=== PATIENT | female | born 1940 | race Caucasian/White ===

== ENCOUNTER 2020-01-04 13:04 | Inpatient (IN) ==
[2020-01-04] MEDS ORDERED: 0.9 % Sodium Chloride 1,000 ML IVC STA ×2 (13:22→15:13)
[2020-01-04 13:42] LABS: INR 1.6; Prothrombin Time 18.5 Seconds (9.4-12.1)
[2020-01-04 13:44] LABS: Activated Partial Thrombo Time 24.6 Seconds (26.0-36.0); Hematocrit 22.8 % (35.3-44.9); Hemoglobin 7.5 g/dL (11.5-15.4); Immature Platelets 1.7 % (1.1-6.1); Mean Corpuscular HGB Conc 32.9 g/dL (31.6-35.5); Mean Corpuscular Hemoglobin 30.7 pg (28.0-33.3); Mean Corpuscular Volume 93.4 fL (83.0-100.0); Mean Platelet Volume 9.3 fL (9.4-12.4); Red Blood Count 2.44 M/mcL (3.82-4.97); Red Cell Distribution Width 15.7 % (11.5-14.5)
[2020-01-04 14:01] LABS: Bilirubin,Urine Small (Negative); Blood,Urine Negative (Negative); Clarity,Urine Clear (Clear); Color,Urine Yellow (Yellow); Glucose,Urine (UA) Normal (Normal); Ketones,Urine Negative (Negative); Leukocyte Esterase,Urine Negative (Negative); Nitrite,Urine Negative (Negative); Protein,Urine Negative (Neg-Trace); Specific Gravity,Urine 1.015 (1.010-1.025); Urobilinogen,Urine Normal (Normal)
[2020-01-04 14:11] LABS: Alanine Aminotransferase 53 Units/L (7-52); Albumin 2.8 g/dL (3.5-5.7); Albumin/Globulin Ratio 1.3 (1.1-2.2); Alkaline Phosphatase 85 Units/L (34-104); Aspartate Amino Transferase 22 Units/L (13-39); BUN/Creatinine Ratio 31 (6-26); Bilirubin,Direct 0.2 mg/dL (0.0-0.2); Bilirubin,Indirect 0.6 mg/dL (0.0-1.0); Bilirubin,Total 0.8 mg/dL (0.3-1.0); Blood Urea Nitrogen 33 mg/dL (8-23); Calcium 8.1 mg/dL (8.6-10.3); Carbon Dioxide 21 mEq/L (23-29); Chloride 104 mEq/L (98-107); Globulin 2.1 g/dL (2.4-3.5); Glucose 181 mg/dL (70-105); Magnesium 1.3 mg/dL (1.6-2.6); Osmolality,Calculated 290 (280-300); Phosphorous 2.8 mg/dL (2.7-4.5); Sodium 134 mEq/L (136-145); Total Protein 4.9 g/dL (6.4-8.9); Troponin I < 0.03 ng/mL (< 0.04); Uric Acid 3.4 mg/dL (2.3-7.6); eGFR For African Americans > 60 (> 60); eGFR For Non-African Americans 50 (> 60)
[2020-01-04] MEDS ORDERED: Potassium Chloride 40 MEQ, Lidocaine 1% 2 ML in 0.9 % Sodium Chloride 500 ML IVPB ONE (14:18)
[2020-01-04 14:19] LABS: Platelet Count 51 K/mcL (140-400)
[2020-01-04 14:21] LABS: Lymphocytes # 0.2 K/mcL (0.6-4.6); Neutrophils # 0.1 K/mcL (1.6-8.9)
[2020-01-04 14:27] LABS: White Blood Count 0.3 K/mcL (4.3-11.1)
[2020-01-04 14:38] LABS: Platelet Estimate Decreased (Normal)
[2020-01-04] MEDS ORDERED: Cefepime HCl 2,000 MG in 0.9 % Sodium Chloride Mini Bag 100 ML IVPB ONE (14:56)
[2020-01-04] MEDS ORDERED: Naloxone 0.4 MG/ML INJ IVP PRN (16:48)
[2020-01-04] MEDS ORDERED: Ondansetron 4 MG/2 ML VIAL IVP PRN (16:48)
[2020-01-04] MEDS ORDERED: Azithromycin 500 MG in 0.9 % Sodium Chloride 250 ML IVPB ONE (17:15)
[2020-01-04] MEDS: 0.9 % Sodium Chloride w KCl 20 MEQ/1,000 ML MLS IVC SCH (20:22)
[2020-01-04] MEDS: Apixaban 2.5 MG TABLET PO SCH (20:23)
[2020-01-05 02:52] LABS: Mean Corpuscular HGB Conc 32.2 g/dL (31.6-35.5); Mean Corpuscular Hemoglobin 30.8 pg (28.0-33.3)
[2020-01-05 02:55] LABS: Hematocrit 20.2 % (35.3-44.9); Hemoglobin 6.5 g/dL (11.5-15.4); Immature Platelets 1.8 % (1.1-6.1); Lymphocytes % 75.8 %; Mean Corpuscular Volume 95.7 fL (83.0-100.0); Monocytes % 9.1 %; Red Blood Count 2.11 M/mcL (3.82-4.97); Red Cell Distribution Width 15.9 % (11.5-14.5); Segmented Neutrophils % 12.1 %
[2020-01-05 03:02] LABS: Lymphocytes # 0.2 K/mcL (0.6-4.6); Platelet Count 41 K/mcL (140-400)
[2020-01-05 03:04] LABS: White Blood Count 0.3 K/mcL (4.3-11.1)
[2020-01-05 03:16] LABS: BUN/Creatinine Ratio 32 (6-26); Blood Urea Nitrogen 25 mg/dL (8-23); Calcium 7.2 mg/dL (8.6-10.3); Carbon Dioxide 19 mEq/L (23-29); Chloride 113 mEq/L (98-107); Glucose 83 mg/dL (70-105); Magnesium 1.9 mg/dL (1.6-2.6); Osmolality,Calculated 288 (280-300); Phosphorous 2.6 mg/dL (2.7-4.5); Potassium 4.3 mEq/L (3.5-5.1); Sodium 137 mEq/L (136-145); eGFR For African Americans > 60 (> 60); eGFR For Non-African Americans > 60 (> 60)
[2020-01-05 04:10] LABS: Platelet Estimate Decreased (Normal)
[2020-01-05] MEDS: 0.9 % Sodium Chloride w KCl 20 MEQ/1,000 ML MLS IVC SCH (06:00)
[2020-01-05] MEDS: Apixaban 2.5 MG TABLET PO SCH (08:29)
[2020-01-05] MEDS: allopurinoL 300 MG TABLET PO SCH (08:29)
[2020-01-05] MEDS ORDERED: 0.9 % Sodium Chloride 250 ML ONE (09:08)
[2020-01-05] MEDS: Cefepime HCl 2,000 MG in 0.9 % Sodium Chloride Mini Bag 100 ML IVPB SCH ×2 (12:00→21:23)
[2020-01-05] MEDS: DilTIAZem CD (24hr) 120 MG CAP.ER.24H PO SCH ×2 (12:00→21:24)
[2020-01-05] MEDS ORDERED: Cefepime HCl 2,000 MG in 0.9 % Sodium Chloride Mini Bag 100 ML IVPB SCH (16:00)
[2020-01-06 02:17] LABS: Hemoglobin 7.9 g/dL (11.5-15.4); Mean Corpuscular Volume 92.7 fL (83.0-100.0); Red Cell Distribution Width 15.9 % (11.5-14.5)
[2020-01-06 02:19] LABS: Immature Granulocytes % 3.3 % (0-4); Lymphocytes # 0.3 K/mcL (0.6-4.6); Lymphocytes % 86.7 %; Mean Corpuscular HGB Conc 32.9 g/dL (31.6-35.5); Mean Corpuscular Hemoglobin 30.5 pg (28.0-33.3); Mean Platelet Volume 10.7 fL (9.4-12.4); Red Blood Count 2.59 M/mcL (3.82-4.97)
[2020-01-06 02:27] LABS: Platelet Count 29 K/mcL (140-400); White Blood Count 0.3 K/mcL (4.3-11.1)
[2020-01-06 02:39] LABS: % Iron Saturation 39 % (15-50); BUN/Creatinine Ratio 24 (6-26); Blood Urea Nitrogen 18 mg/dL (8-23); Calcium 7.6 mg/dL (8.6-10.3); Carbon Dioxide 19 mEq/L (23-29); Chloride 109 mEq/L (98-107); Glucose 95 mg/dL (70-105); Iron 67 mcg/dL (50-170); Magnesium 1.6 mg/dL (1.6-2.6); Osmolality,Calculated 280 (280-300); Phosphorous 2.2 mg/dL (2.7-4.5); Platelet Estimate Marked Decrease (Normal); Potassium 3.7 mEq/L (3.5-5.1); Sodium 134 mEq/L (136-145); Transferrin 124 mg/dL (203-362); eGFR For African Americans > 60 (> 60); eGFR For Non-African Americans > 60 (> 60)
[2020-01-06 02:56] LABS: Ferritin 247 ng/mL (10-120)
[2020-01-06 03:02] LABS: Folate 10.5 ng/mL (3.0-16.0)
[2020-01-06] MEDS: allopurinoL 300 MG TABLET PO SCH (08:26)
[2020-01-06] MEDS: DilTIAZem CD (24hr) 120 MG CAP.ER.24H PO SCH ×2 (08:26→21:42)
[2020-01-06] MEDS: Cefepime HCl 2,000 MG in 0.9 % Sodium Chloride Mini Bag 100 ML IVPB SCH ×2 (08:26→21:42)
[2020-01-06 17:01] LABS: Hemoglobin 8.8 g/dL (11.5-15.4)
[2020-01-06 17:03] LABS: Hematocrit 26.4 % (35.3-44.9); Immature Platelets 2.1 % (1.1-6.1); Lymphocytes # 0.3 K/mcL (0.6-4.6); Lymphocytes % 87.1 %; Mean Corpuscular HGB Conc 33.3 g/dL (31.6-35.5); Mean Corpuscular Hemoglobin 30.6 pg (28.0-33.3); Mean Corpuscular Volume 91.7 fL (83.0-100.0); Mean Platelet Volume 10.4 fL (9.4-12.4); Monocytes % 12.9 %; Red Blood Count 2.88 M/mcL (3.82-4.97); Red Cell Distribution Width 15.2 % (11.5-14.5)
[2020-01-06 17:23] LABS: Platelet Count 26 K/mcL (140-400); White Blood Count 0.3 K/mcL (4.3-11.1)
[2020-01-06 17:24] LABS: Platelet Estimate Marked Decrease (Normal)
[2020-01-06] MEDS: Vancomycin 1,250 MG/262.5 ML IV.SOLN IVPB SCH (17:41)
[2020-01-07 02:09] LABS: Hemoglobin 8.4 g/dL (11.5-15.4); Red Cell Distribution Width 15.2 % (11.5-14.5)
[2020-01-07 02:11] LABS: Hematocrit 25.5 % (35.3-44.9); Lymphocytes # 0.2 K/mcL (0.6-4.6); Lymphocytes % 80.6 %; Mean Corpuscular HGB Conc 32.9 g/dL (31.6-35.5); Mean Corpuscular Hemoglobin 30.8 pg (28.0-33.3); Mean Corpuscular Volume 93.4 fL (83.0-100.0); Mean Platelet Volume 10.7 fL (9.4-12.4); Monocytes % 9.7 %; Red Blood Count 2.73 M/mcL (3.82-4.97); Segmented Neutrophils % 9.7 %
[2020-01-07 02:26] LABS: BUN/Creatinine Ratio 17 (6-26); Blood Urea Nitrogen 13 mg/dL (8-23); Calcium 7.8 mg/dL (8.6-10.3); Carbon Dioxide 20 mEq/L (23-29); Chloride 106 mEq/L (98-107); Glucose 98 mg/dL (70-105); Osmolality,Calculated 278 (280-300); Potassium 3.6 mEq/L (3.5-5.1); Sodium 134 mEq/L (136-145); eGFR For African Americans > 60 (> 60); eGFR For Non-African Americans > 60 (> 60)
[2020-01-07 02:27] LABS: Magnesium 1.5 mg/dL (1.6-2.6); Phosphorous 2.6 mg/dL (2.7-4.5)
[2020-01-07 02:28] LABS: Platelet Count 25 K/mcL (140-400); White Blood Count 0.3 K/mcL (4.3-11.1)
[2020-01-07 02:55] LABS: Platelet Estimate Marked Decrease (Normal)
[2020-01-07 08:19] LABS: Mean Corpuscular Volume 93.6 fL (83.0-100.0)
[2020-01-07 08:21] LABS: Hematocrit 26.5 % (35.3-44.9); Hemoglobin 8.7 g/dL (11.5-15.4); Immature Platelets 2.6 % (1.1-6.1); Lymphocytes # 0.2 K/mcL (0.6-4.6); Lymphocytes % 78.6 %; Mean Corpuscular HGB Conc 32.8 g/dL (31.6-35.5); Mean Corpuscular Hemoglobin 30.7 pg (28.0-33.3); Mean Platelet Volume 10.3 fL (9.4-12.4); Monocytes % 10.7 %; Red Blood Count 2.83 M/mcL (3.82-4.97); Red Cell Distribution Width 14.9 % (11.5-14.5); Segmented Neutrophils % 10.7 %
[2020-01-07 08:45] LABS: Platelet Count 22 K/mcL (140-400); White Blood Count 0.3 K/mcL (4.3-11.1)
[2020-01-07 08:47] LABS: Platelet Estimate Marked Decrease (Normal)
[2020-01-07] MEDS: allopurinoL 300 MG TABLET PO SCH (09:22)
[2020-01-07] MEDS: DilTIAZem CD (24hr) 120 MG CAP.ER.24H PO SCH ×2 (09:23→21:39)
[2020-01-07] MEDS: Cefepime HCl 2,000 MG in 0.9 % Sodium Chloride Mini Bag 100 ML IVPB SCH ×2 (09:23→21:40)
[2020-01-07] MEDS ORDERED: Acetaminophen 325 MG TABLET PO PRN (09:54)
[2020-01-07] MEDS ORDERED: 0.9 % Sodium Chloride 250 ML ONE ×2 (11:08→14:12)
[2020-01-07] MEDS: Vancomycin 1,250 MG/262.5 ML IV.SOLN IVPB SCH (17:42)
[2020-01-07] MEDS ORDERED: Isovue-370 500 ML BOTTLE IVP ONE (17:50)
[2020-01-07] MEDS: metroNIDAZOLE 500 MG TABLET PO SCH (21:39)
[2020-01-07] MEDS ORDERED: Vancomycin 1,250 MG/262.5 ML IV.SOLN IVPB SCH (22:00)
[2020-01-08 02:03] LABS: Hematocrit 22.2 % (35.3-44.9); Hemoglobin 7.3 g/dL (11.5-15.4); Mean Corpuscular HGB Conc 32.9 g/dL (31.6-35.5); Red Cell Distribution Width 14.7 % (11.5-14.5)
[2020-01-08 02:05] LABS: Lymphocytes % 64.7 %; Mean Corpuscular Hemoglobin 30.4 pg (28.0-33.3); Mean Corpuscular Volume 92.5 fL (83.0-100.0); Mean Platelet Volume 9.9 fL (9.4-12.4); Monocytes % 8.8 %; Neutrophils # 0.1 K/mcL (1.6-8.9); Segmented Neutrophils % 26.5 %
[2020-01-08 02:10] LABS: Lymphocytes # 0.3 K/mcL (0.6-4.6); White Blood Count 0.4 K/mcL (4.3-11.1)
[2020-01-08 02:11] LABS: Platelet Count 40 K/mcL (140-400)
[2020-01-08 02:23] LABS: BUN/Creatinine Ratio 19 (6-26); Blood Urea Nitrogen 13 mg/dL (8-23); Calcium 7.9 mg/dL (8.6-10.3); Carbon Dioxide 22 mEq/L (23-29); Chloride 104 mEq/L (98-107); Glucose 103 mg/dL (70-105); Magnesium 1.3 mg/dL (1.6-2.6); Osmolality,Calculated 280 (280-300); Potassium 3.2 mEq/L (3.5-5.1); Sodium 135 mEq/L (136-145); eGFR For African Americans > 60 (> 60); eGFR For Non-African Americans > 60 (> 60)
[2020-01-08 02:41] LABS: Platelet Estimate Marked Decrease (Normal)
[2020-01-08] MEDS: metroNIDAZOLE 500 MG TABLET PO SCH ×2 (08:34→16:28)
[2020-01-08] MEDS: DilTIAZem CD (24hr) 120 MG CAP.ER.24H PO SCH (08:34)
[2020-01-08] MEDS: allopurinoL 300 MG TABLET PO SCH (08:34)
[2020-01-08] MEDS: Cefepime HCl 2,000 MG in 0.9 % Sodium Chloride Mini Bag 100 ML IVPB SCH (10:12)
[2020-01-08 15:13] VITALS: BP 118/66
== END 2020-01-08 17:12 | disposition home or self-care (01) | DRG 871 ==
LOC: 2ANU 13:04 → EMEROOARM 13:04 → SUATTDRO 18:05 → 2ANU 19:00
PROVIDERS: ADMIT Internal Medicine; ATTEND Family Medicine

== ENCOUNTER 2020-07-22 17:11 | Observation (INO) ==
[2020-07-22] MEDS ORDERED: 0.9 % Sodium Chloride 1,000 ML IVC ONE (17:24)
[2020-07-22] MEDS ORDERED: *HR* Atropine Sulfate 1 MG/10 ML SYRINGE IV ONE (17:45)
[2020-07-22] MEDS: Calcium Gluconate 1gm/50mL BAG IVPB ONE (17:53)
[2020-07-22] MEDS ORDERED: Hydrocortisone Sodium Succ 100 MG/2 ML VIAL IVP ONE (18:00)
[2020-07-22 18:10] LABS: Basophils % 0.3 %; Hematocrit 31.1 % (35.3-44.9); Hemoglobin 9.6 g/dL (11.5-15.4); Immature Granulocytes % 4.9 % (0-4); Lymphocytes # 0.1 K/mcL (0.6-4.6); Lymphocytes % 3.6 %; Mean Corpuscular HGB Conc 30.9 g/dL (31.6-35.5); Mean Corpuscular Hemoglobin 32.8 pg (28.0-33.3); Mean Corpuscular Volume 106.1 fL (83.0-100.0); Mean Platelet Volume 9.7 fL (9.4-12.4); Monocytes # 0.4 K/mcL (0.0-1.3); Platelet Count 275 K/mcL (140-400); Red Blood Count 2.93 M/mcL (3.82-4.97); Red Cell Distribution Width 21.7 % (11.5-14.5); Segmented Neutrophils % 79.2 %; White Blood Count 3.1 K/mcL (4.3-11.1)
[2020-07-22 18:12] LABS: Neutrophils # 2.5 K/mcL (1.6-8.9)
[2020-07-22 18:30] LABS: Platelet Estimate Normal (Normal)
[2020-07-22 18:41] LABS: Alanine Aminotransferase 12 Units/L (7-52); Albumin 3.7 g/dL (3.5-5.7); Albumin/Globulin Ratio 1.9 (1.1-2.2); Alkaline Phosphatase 67 Units/L (34-104); Aspartate Amino Transferase 25 Units/L (13-39); BUN/Creatinine Ratio 22 (6-26); Bilirubin,Total 0.3 mg/dL (0.3-1.0); Blood Urea Nitrogen 45 mg/dL (8-23); Calcium 9.3 mg/dL (8.6-10.3); Carbon Dioxide 14 mEq/L (23-29); Chloride 117 mEq/L (98-107); Glucose 135 mg/dL (70-105); Osmolality,Calculated 298 (280-300); Potassium 8.6 mEq/L (3.5-5.1); Sodium 137 mEq/L (136-145); Total Protein 5.7 g/dL (6.4-8.9); Troponin I < 0.03 ng/mL (< 0.04); eGFR For African Americans 27 (> 60); eGFR For Non-African Americans 23 (> 60)
[2020-07-22] MEDS ORDERED: Albuterol 2.5 MG/3 ML NEBULIZER AER ONE (19:00)
[2020-07-22] MEDS ORDERED: *HR* Dextrose 50 % in Water (Vial) 50 ML VIAL IVP ONE (19:00)
[2020-07-22] MEDS ORDERED: Insulin Human Regular 5 UNIT in 0.9 % Sodium Chloride 10 ML IV ONE (19:00)
[2020-07-22 20:00] LABS: Phosphorous 4.9 mg/dL (2.7-4.5); Uric Acid 6.7 mg/dL (2.3-7.6)
[2020-07-22] MEDS ORDERED: Ondansetron ODT 4 MG TAB.RAPDIS SL PRN (20:41)
[2020-07-22] MEDS ORDERED: Naloxone 0.4 MG/ML INJ IVP PRN (20:41)
[2020-07-22] MEDS: 0.9 % Sodium Chloride 1,000 ML IVC SCH (22:40)
[2020-07-22 23:05] LABS: Calcium 8.8 mg/dL (8.6-10.3); Uric Acid 6.2 mg/dL (2.3-7.6)
[2020-07-23] MEDS: 0.9 % Sodium Chloride 1,000 ML IVC SCH (03:50)
[2020-07-23 04:24] LABS: Hematocrit 28.1 % (35.3-44.9); Hemoglobin 8.8 g/dL (11.5-15.4); Mean Corpuscular HGB Conc 31.3 g/dL (31.6-35.5); Mean Platelet Volume 9.8 fL (9.4-12.4)
[2020-07-23 04:26] LABS: Lymphocytes # 0.1 K/mcL (0.6-4.6); Mean Corpuscular Hemoglobin 33.5 pg (28.0-33.3); Mean Corpuscular Volume 106.8 fL (83.0-100.0); Platelet Count 228 K/mcL (140-400); Red Blood Count 2.63 M/mcL (3.82-4.97); Red Cell Distribution Width 21.3 % (11.5-14.5); White Blood Count 1.7 K/mcL (4.3-11.1)
[2020-07-23 04:31] LABS: Bilirubin,Urine Negative (Negative); Blood,Urine Negative (Negative); Clarity,Urine Clear (Clear); Color,Urine Light-Yellow (Yellow); Glucose,Urine (UA) Normal (Normal); Ketones,Urine Negative (Negative); Leukocyte Esterase,Urine Negative (Negative); Nitrite,Urine Negative (Negative); Protein,Urine Negative (Neg-Trace); Specific Gravity,Urine 1.018 (1.010-1.025); Urobilinogen,Urine Normal (Normal)
[2020-07-23 04:41] LABS: Magnesium 1.5 mg/dL (1.6-2.6); Potassium 6.1 mEq/L (3.5-5.1)
[2020-07-23 04:53] LABS: Neutrophils # 1.6 K/mcL (1.6-8.9); Platelet Estimate Normal (Normal)
[2020-07-23 05:04] LABS: BUN/Creatinine Ratio 24 (6-26); Blood Urea Nitrogen 36 mg/dL (8-23); Calcium 8.4 mg/dL (8.6-10.3); Carbon Dioxide 16 mEq/L (23-29); Chloride 119 mEq/L (98-107); Glucose 149 mg/dL (70-105); Osmolality,Calculated 305 (280-300); Sodium 142 mEq/L (136-145); eGFR For African Americans 40 (> 60); eGFR For Non-African Americans 33 (> 60)
[2020-07-23] MEDS ORDERED: Insulin Human Regular 10 UNIT in 0.9 % Sodium Chloride 10 ML IV ONE (05:10)
[2020-07-23] MEDS ORDERED: *HR* Dextrose 50 % in Water (Vial) 50 ML VIAL IVP ONE ×2 (05:10→09:42)
[2020-07-23] MEDS ORDERED: *HR* Dextrose 50 % in Water (Vial) 50 ML VIAL IVP PRN ×2 (07:55→09:42)
[2020-07-23] MEDS ORDERED: Furosemide 40 MG/4 ML VIAL IVP ONE (07:59)
[2020-07-23] MEDS ORDERED: Insulin Human Regular 100 UNIT in 0.9 % Sodium Chloride 100 ML IVC SCH (08:00)
[2020-07-23] MEDS ORDERED: Calcium Gluconate 1gm/50mL 1 GM/50 ML BAG IVPB ONE ×2 (09:24→12:00)
[2020-07-23] MEDS: Aspirin Enteric Coated 81 MG Tablet PO SCH (10:12)
[2020-07-23] MEDS: Apixaban 2.5 MG TABLET PO SCH ×2 (10:12→20:45)
[2020-07-23] MEDS: allopurinoL 100 MG TABLET PO SCH (10:12)
[2020-07-23] MEDS: Calcium Gluconate 1gm/50mL BAG IVPB ONE (10:14)
[2020-07-23] MEDS ORDERED: SODIUM ZIRCONIUM CYCLOSILICATE 5 GM POWD.PACK PO SCH (11:30)
[2020-07-23] MEDS: D5% in Water 1,000 ML IVC SCH (12:38)
[2020-07-23 12:59] LABS: Calcium 8.2 mg/dL (8.6-10.3); Phosphorous 3.7 mg/dL (2.7-4.5); Potassium 4.1 mEq/L (3.5-5.1)
[2020-07-23 16:56] LABS: Calcium 7.9 mg/dL (8.6-10.3); Potassium 3.6 mEq/L (3.5-5.1)
[2020-07-23] MEDS ORDERED: ALPRAZolam 0.5 MG TABLET PO SCH (21:00)
[2020-07-23 22:33] LABS: Calcium 8.1 mg/dL (8.6-10.3); Potassium 3.7 mEq/L (3.5-5.1)
[2020-07-24 01:07] LABS: Calcium 8.1 mg/dL (8.6-10.3); Potassium 3.6 mEq/L (3.5-5.1)
[2020-07-24] MEDS: D5% in Water 1,000 ML IVC SCH (04:09)
[2020-07-24 04:38] LABS: Eosinophils % 0.6 %; Hematocrit 28.8 % (35.3-44.9); Hemoglobin 9.1 g/dL (11.5-15.4); Immature Granulocytes % 1.8 % (0-4); Lymphocytes # 0.1 K/mcL (0.6-4.6); Lymphocytes % 4.7 %; Mean Corpuscular HGB Conc 31.6 g/dL (31.6-35.5); Mean Corpuscular Hemoglobin 32.2 pg (28.0-33.3); Mean Corpuscular Volume 101.8 fL (83.0-100.0); Mean Platelet Volume 9.5 fL (9.4-12.4); Monocytes # 0.3 K/mcL (0.0-1.3); Monocytes % 15.9 %; Neutrophils # 1.3 K/mcL (1.6-8.9); Platelet Count 193 K/mcL (140-400); Red Blood Count 2.83 M/mcL (3.82-4.97); Red Cell Distribution Width 19.9 % (11.5-14.5); White Blood Count 1.7 K/mcL (4.3-11.1)
[2020-07-24 04:56] LABS: Calcium 8.2 mg/dL (8.6-10.3); Magnesium 1.3 mg/dL (1.6-2.6); Potassium 3.6 mEq/L (3.5-5.1)
[2020-07-24 05:04] LABS: Anisocytosis 1+ (Not Present); Microcytosis Present (Not Present); Platelet Estimate Normal (Normal); Poikilocytosis 1+ (Not Present)
[2020-07-24] MEDS: Aspirin Enteric Coated 81 MG Tablet PO SCH (09:30)
[2020-07-24] MEDS: allopurinoL 100 MG TABLET PO SCH (09:31)
[2020-07-24] MEDS: Apixaban 2.5 MG TABLET PO SCH (09:31)
[2020-07-24] MEDS ORDERED: DilTIAZem CD (24hr) 120 MG CAP.ER.24H PO SCH (09:45)
[2020-07-24 11:15] VITALS: BP 124/76
== END 2020-07-24 12:55 | disposition home or self-care (01) ==
LOC: EMEROOARM 17:11 → 2NNU 17:11 → SUATTDRO 19:59 → 2NNU 20:34
PROVIDERS: ADMIT Internal Medicine; ATTEND Pharmacist